=== PATIENT | male | born 1995 ===

== ENCOUNTER → 2020-03-24 | Outpatient (CLI) | payer OTHER | LOC: LAB 09:41 | DX: R50.9 Fever, unspecified (principal) ==

== ENCOUNTER → 2024-07-07 | Outpatient (CLI) | payer OTHER | LOC: RAD 11:14 | DX: S69.82XA Other specified injuries of left wrist, hand and finger(s), initial encounter (principal); X58.XXXA Exposure to other specified factors, initial encounter ==

== ENCOUNTER 2024-10-29 10:02 | Emergency (ER) | payer SELFPAY ==
[~2024-10-29] VITALS: Ht 185.4 cm; Wt 116.2 kg
[2024-10-29] MEDS ORDERED: NS 1,000 ML IV ONE (10:30)
[2024-10-29] MEDS ORDERED: Ketorolac 30 MG/ML VIAL IV ONE ×2 (10:30→11:45)
[2024-10-29] MEDS ORDERED: Iohexol 300 - 100 ML VIAL IV ONE (10:51)
[2024-10-29 10:52] LABS: BASO # 0.03 K/mm3 (0.02-0.10); EOS # 0.12 K/mm3 (0.04-0.40); EOS % 1.6 % (0.0-4.0); HEMATOCRIT 42.7 % (42.0-52.0); HEMOGLOBIN 15.2 g/dL (13.5-18.0); LYMPH# 1.89 K/mm3 (1.50-4.00); MEAN CELL VOLUME 84 fl (78-100); MEAN CORPUSCULAR HEMOGLOBIN 30 pg (27-31); MEAN CORPUSCULAR HGB CONC 36 g/dL (33-37); MEAN PLATELET VOLUME 8.9 fl (7.4-10.4); MONO # 0.68 K/mm3 (0.20-0.80); NEU # 4.95 K/mm3 (1.40-6.50); PLATELET COUNT 325 K/mm3 (130-400); RED BLOOD COUNT 5.09 M/mm3 (4.20-5.60); RED CELL DISTRIBUTION WIDTH 12.5 % (11.5-14.5); WHITE BLOOD COUNT 7.7 K/mm3 (4.8-10.8)
[2024-10-29 10:58] LABS: ALBUMIN 4.5 g/dL (3.5-5.0)
[2024-10-29 11:00] LABS: TOTAL PROTEIN 7.1 g/dL (6.4-8.3)
[2024-10-29 11:02] LABS: TOTAL BILIRUBIN 0.5 mg/dL (0.2-1.2)
[2024-10-29] MEDS ORDERED: KETOROLAC10 MG PO (11:47)
[2024-10-29] MEDS ORDERED: ZOFRAN ODT4 MG PO (11:47)
[2024-10-29 12:27] VITALS: BP 142/103
[2024-10-29 12:52] LABS: URINE APPEARANCE CLEAR (CLEAR); URINE BILIRUBIN NEGATIVE (NEGATIVE); URINE BLOOD NEGATIVE (NEGATIVE); URINE COLOR YELLOW (YELLOW); URINE GLUCOSE NEGATIVE (NEGATIVE); URINE KETONE NEGATIVE (NEGATIVE); URINE LEUKOCYTE ESTERASE NEGATIVE (NEGATIVE); URINE NITRATE NEGATIVE (NEGATIVE); URINE PROTEIN(semi-quant) NEGATIVE (NEGATIVE)
[2024-10-29 12:56] LABS: URINE WBC 0-1 /hpf (0-3)
[2024-10-29 12:57] LABS: URINE MUCUS PRESENT (NOT PRESENT)
== END 2024-10-29 12:16 | disposition home or self-care (01) ==
LOC: ED 10:02
PROVIDERS: Family Medicine
DX: N20.0 Calculus of kidney (principal); E66.9 Obesity, unspecified; F17.210 Nicotine dependence, cigarettes, uncomplicated; Z68.33 Body mass index [BMI] 33.0-33.9, adult
CPT/HCPCS: J1885; J7030; Q9967